=== PATIENT | male | born 1945 | race Caucasian/White ===

== ENCOUNTER 2019-03-26 13:35 | Emergency (ER) | payer OTHER ==
[2019-03-26 13:43] VITALS: BP 143/71; PULSE 83; TEMP 97.5; BMI 24.7
--- NOTE | 2019-03-26 13:49 | PDOC ---
Rapid Medical Evaluation Chief Complaint: Urinary Problem Time Seen by Provider: 03/26/19 13:39 Medical Evaluation: Allergies Allergy/AdvReac Type Severity Reaction Status Date / Time No Known Allergies Allergy Verified 03/26/19 13:46 Vital Signs Temp Pulse Resp BP Pulse Ox 97.5 F L 83 19 143/71 99 03/26/19 13:41 03/26/19 13:41 03/26/19 13:41 03/26/19 13:41 03/26/19 13:41 03/26/19 13:46 I have performed a brief in-person evaluation of this patient. The patient presents with a chief complaint of: h/o HTN, BPH, HPL sent in by [facility] for tx s/p pt presenting with complains urinary complains of dysuria and intermittent fevers since yesterday. labs brought in from [facility] shows WBC of 23 on CBC Pertinent physical exam findings: A&O x 3 in NAD I have ordered the following: CBC, CMP, BCx, UA, Ucx The patient will proceed to the ED for further evaluation. Discharge Disposition - Diagnosis Dysuria - Discharge Dispostion Condition at time of disposition: Stable - Referrals - Patient Instructions - Post Discharge Activity
--- NOTE | 2019-03-26 14:46 | PDOC ---
History of Present Illness - General Chief Complaint: Urinary Problem Stated Complaint: urinary problem Time Seen by Provider: 03/26/19 13:39 - History of Present Illness Initial Comments: 03/26/19 14:40 Mr. Navarrete is a 74 yo male w/ pmh of BPH, HTN, COPD (O2 at home), HLD who presents upon advice from [facility] for elevated WBC w/ fevers at home up to 100.4 for the pastday w/ difficulty urinating and burning when he urinates. Patient denies any other symptoms and has been taking amoxicillin for the last day that his daughter provided from [facility]. The patient denies chest pain, shortness of breath, headache and dizziness. Denies nausea, vomit, diarrhea and constipation. Past History - Past Medical History Allergies/Adverse Reactions: Allergies Allergy/AdvReac Type Severity Reaction Status Date / Time No Known Allergies Allergy Verified 03/26/19 13:46 Home Medications: Ambulatory Orders Sulfamethoxazole/Trimethoprim [Bactrim Ds -] 1 tab PO BID #84 tablet 03/26/19 COPD: No HTN: Yes Hypercholesterolemia: Yes Other medical history: BPH - Suicide/Smoking/Psychosocial Hx Smoking History: Never smoked Information on smoking cessation initiated: No Hx Alcohol Use: No Drug/Substance Use Hx: No Review of Systems - Review of Systems Comments:: 03/26/19 14:47 GENERAL/CONSTITUTIONAL: +Intermittent fever/chills for 1 day. No weakness. HEAD, EYES, EARS, NOSE AND THROAT: No change in vision. No ear pain or discharge. No sore throat. CARDIOVASCULAR: No chest pain or shortness of breath RESPIRATORY: No cough, wheezing, or hemoptysis. GASTROINTESTINAL: No nausea, vomiting, diarrhea or constipation. GENITOURINARY: +Urinary symptoms of burning as described. MUSCULOSKELETAL: No joint or muscle swelling or pain. No neck or back pain. SKIN: No rash NEUROLOGIC: No headache, vertigo, loss of consciousness, or change in strength/ sensation. ENDOCRINE: No increased thirst. No abnormal weight change HEMATOLOGIC/LYMPHATIC: No anemia, easy bleeding, or history of blood clots. ALLERGIC/IMMUNOLOGIC: No hives or skin allergy. *Physical Exam - Vital Signs Last Vital Signs Temp Pulse Resp BP Pulse Ox 97.5 F L 83 19 143/71 99 03/26/19 13:41 03/26/19 13:41 03/26/19 13:41 03/26/19 13:41 03/26/19 13:41 - Physical Exam Comments: 03/26/19 14:46 GENERAL: Awake, alert, and fully oriented, in no acute distress HEAD: No signs of trauma, normocephalic, atraumatic EYES: PERRLA, EOMI, sclera anicteric, conjunctiva clear ENT: Auricles normal inspection, hearing grossly normal, nares patent, oropharynx clear without exudates. Moist mucosa NECK: Normal ROM, supple, no lymphadenopathy, JVD, or masses LUNGS: No distress, speaks full sentences, clear to auscultation bilaterally HEART: Regular rate and rhythm, normal S1 and S2, no murmurs, rubs or gallops, peripheral pulses normal and equal bilaterally. ABDOMEN: Soft, nontender, normoactive bowel sounds. No guarding, no rebound. No masses EXTREMITIES: Normal inspection, Normal range of motion, no edema. No clubbing or cyanosis. NEUROLOGICAL: Cranial nerves II through XII grossly intact. Normal speech, normal gait, no focal sensorimotor deficits SKIN: Warm, Dry, normal turgor, no rashes or lesions noted. RECTAL: +Prostate tender to palpation and boggy ED Treatment Course - LABORATORY CBC & Chemistry Diagram: 03/26/19 15:05 03/26/19 15:05 Medical Decision Making - Medical Decision Making 03/26/19 15:32 Mr. Navarrete is a 74 yo male w/ pmh as described who presents for evaluation of symptoms consistent w/ UTI vs. prostatitis vs. BPH symptoms. Patient will be evaluated for UTI w/ UA/UCx as well as systemic infection w/ blood cultures. 03/26/19 16:00 Post-void bladder scan revealed 107mL urine well after urination. Patient noted to have elevated WBC consistent with prostatitis. Patient pending rest of labs at this time. 03/26/19 16:27 Rest of patient's labs grossly wnl. Patient to f/u w/ urology for further evaluation. Discharging to home. Laboratory Results - last 24 hr 03/26/19 03/26/19 03/26/19 15:05 15:05 15:51 WBC 23.1 H RBC 4.51 Hgb 13.3 Hct 40.4 MCV 89.6 MCH 29.5 MCHC 33.0 RDW 15.0 Plt Count 201 MPV 10.3 Absolute Neuts (auto) 18.3 H Neutrophils % 79.2 Lymphocytes % 9.6 Monocytes % 10.6 H Eosinophils % 0.2 Basophils % 0.4 Nucleated RBC % 0 Sodium 141 Potassium 4.4 Chloride 104 Carbon Dioxide 26 Anion Gap 10 BUN 13.3 Creatinine 0.7 Est GFR (CKD-EPI)AfAm 108.51 Est GFR (CKD-EPI)NonAf 93.62 Random Glucose 84 Calcium 9.3 Total Bilirubin 0.7 AST 32 ALT 40 Alkaline Phosphatase 71 Total Protein 7.2 Albumin 3.6 Urine Color Yellow Urine Appearance Clear Urine pH 5.0 Ur Specific [place] 1.009 L Urine Protein Negative Urine Glucose (UA) Negative Urine Ketones Negative Urine Blood Negative Urine Nitrite Negative Urine Bilirubin Negative Urine Urobilinogen 0.2 Ur Leukocyte Esterase Negative *DC/Admit/Observation/Transfer Diagnosis at time of Disposition: Prostatitis Qualifiers: Prostatitis type: unspecified Qualified Code(s): N41.9 - Inflammatory disease of prostate, unspecified - Discharge Dispostion Disposition: HOME Condition at time of disposition: Stable - Prescriptions Prescriptions: Sulfamethoxazole/Trimethoprim [Bactrim Ds -] 1 tab PO BID #84 tablet - Referrals Referrals: ON STAFF,NOT [Primary Care Provider] - Jayme Castillo MD [Staff Physician] - - Patient Instructions Printed Discharge Instructions: DI for Acute Prostatitis Additional Instructions: You were evaluated today in the ER and found to have a prostate infection. We started you on antibiotics and sent a prescription to your pharmacy. Take all medications as proscribed. Please follow-up with urology using either the provided urology contact info or set up an appointment with your established urologist for further evaluation. Return to ER if any fevers, chills, pain, difficulty urinating, or other concerning symptoms. - Post Discharge Activity
--- NOTE | 2019-03-26 15:28 | PDOC ---
Documentation entered by Desi Bermudez SCRIBE, acting as scribe for Deion Fletcher MD. Deion Fletcher MD: This documentation has been prepared by the Lara patel Sammi, SCRIBE, under my direction and personally reviewed by me in its entirety. I confirm that the documentation accurately reflects all work, treatment, procedures, and medical decision making performed by me. Attending Attestation - Resident Resident Name: [email or web address] - ED Attending Attestation I have performed the following: I have examined & evaluated the patient, The case was reviewed & discussed with the resident, I agree w/resident's findings & plan, Exceptions are as noted - HPI HPI: 03/26/19 14:47 The patient is a 74 year old male, with a significant PMH of BPH, COPD(on home O2), HLD, HTN, who presents to the emergency department from [facility] for evaluation of dysuria and sensation of incomplete voiding. Denies hematuria. Denies discharge from penis. Daughter notes the patient also had a fever yesterday (Tmax 100.4). Daughter reports she has been giving the patient amoxicillin that was leftover. Pt was seen at [facility] urgent care today and found to have WBC 24. Pt was subsequently sent to ED for eval. Pt denies abdominal/flank pain. Denies cough. Denies CONKLIN/N/V. Allergies: NKA - Physicial Exam PE: 03/26/19 15:31 "GENERAL: Awake, alert, and fully oriented, in no acute distress. HEAD: No signs of trauma EYES: PERRLA, EOMI, sclera anicteric, conjunctiva clear ENT: Auricles normal inspection, hearing grossly normal, nares patent, oropharynx clear without exudates. Moist mucosa NECK: Nontender, no stepoffs, Normal ROM, supple, no lymphadenopathy, JVD, or masses LUNGS: Breath sounds equal, clear to auscultation bilaterally. No wheezes, and no crackles HEART: Regular rate and rhythm, normal S1 and S2, no murmurs, rubs or gallops ABDOMEN: Soft, nontender, normoactive bowel sounds. No guarding, no rebound. No masses EXTREMITIES: Normal range of motion, no edema. No clubbing or cyanosis. No cords, erythema, or tenderness NEUROLOGICAL: Cranial nerves II through XII intact. 5/5 strength and sensation in all extremities, Normal speech, normal gait, normal cerebellar function SKIN: Warm, Dry, normal turgor, no rashes or lesions noted. RECTAL: + prostate tenderness - Medical Decision Making 03/26/19 15:31 74 M with dysuria and sensation of incomplete voiding, also with fevers at home. Pt with + prostate tenderness on exam today, suspicious for prostatitis. No abdominal tenderness, no CVAT. - Labs, UA, UCx - Abx - PVR to r/o urinary retention 03/26/19 16:26 Labs notable for WBC 23 UA negative but pt is already on augmentin at home Will start pt on bactrim x 6 weeks for prostatitis Urology f/u Pt to have CBC rechecked by PMD in 1 week Pt is well appearing, with normal vitals. Clinically stable for DC at this time. I discussed the physical exam findings, ancillary test results and final diagnoses with the patient. I answered all of the patient's questions. The patient was satisfied with the care received and felt comfortable with the discharge plan and treatment plan. The patient agrees to follow up with the primary care physician within 24-72 hours.
[2019-03-26 15:40] LABS: BASO % 0.4 % (0-2.0); EOS % 0.2 % (0-4.5); HEMATOCRIT 40.4 % (35.4-49); HEMOGLOBIN 13.3 GM/dL (11.7-16.9); LYMPH % 9.6 % (8-40); MCH 29.5 pg (25.7-33.7); MEAN CELL VOLUME 89.6 fl (80-96); MEAN PLT VOLUME 10.3 fl (7.5-11.1); MONO % 10.6 % (3.8-10.2); NEUT % 79.2 % (42.8-82.8); PLATELET COUNT 201 K/MM3 (134-434); RBC 4.51 M/mm3 (4.00-5.60); WHITE BLOOD COUNT 23.1 K/mm3 (4.0-10.0)
[2019-03-26 16:11] LABS: ALBUMIN 3.6 g/dl (3.4-5.0); BILIRUBIN,TOTAL 0.7 mg/dL (0.2-1); BLOOD UREA NITROGEN 13.3 mg/dL (7-18); CALCIUM 9.3 mg/dL (8.5-10.1); CREATININE 0.7 mg/dL (0.55-1.3); POTASSIUM 4.4 mmol/L (3.5-5.1); TOT PROT 7.2 g/dl (6.4-8.2)
[2019-03-26 16:19] LABS: URINE APPEARANCE CLEAR; URINE BILIRUBIN NEGATIVE (NEGATIVE); URINE COLOR YELLOW; URINE GLUCOSE (UA) NEGATIVE (NEGATIVE); URINE KETONE NEGATIVE (NEGATIVE); URINE LEUK ESTERASE NEGATIVE (NEGATIVE); URINE NITRITE NEGATIVE (NEGATIVE); URINE PROTEIN NEGATIVE (NEGATIVE); URINE UROBILINOGEN 0.2 mg/dL (0.2-1.0)
[2019-03-26] MEDS ORDERED: SULFAMETHOXAZOLE/TRIMETHOPRIM 800MG/160MG D.S. TABLET PO ONE (16:24)
[2019-03-26] MEDS ORDERED: SULFAMETHOXAZOLE/TRIMETHOPRIM 800MG/160MG D.S. TABLET ONE (16:27)
[2019-03-26 16:39] LABS: PLATELET ESTIMATE ADEQUATE
== END 2019-03-26 17:16 | disposition home or self-care (01) ==
LOC: JER 13:35
DX: N41.9 Inflammatory disease of prostate, unspecified (principal); N40.0 Benign prostatic hyperplasia without lower urinary tract symptoms; I10 Essential (primary) hypertension; E78.5 Hyperlipidemia, unspecified; J44.9 Chronic obstructive pulmonary disease, unspecified; Z99.81 Dependence on supplemental oxygen
CPT/HCPCS: 36415; 80053; 81003; 85025; 87040; 87086; 99282-25